=== PATIENT | female | born 1995 | race African-American/Black ===

== ENCOUNTER 2022-06-16 21:59 | Emergency (ER) | payer SELFPAY ==
[2022-06-17] MEDS ORDERED: Acetaminophen 500 MG TAB ONE (00:44)
== END 2022-06-17 01:50 | disposition home or self-care (01) ==
LOC: CSHERS 21:59
DX: M79.674 Pain in right toe(s) (principal); R03.0 Elevated blood-pressure reading, without diagnosis of hypertension

== ENCOUNTER 2022-07-29 21:44 | Emergency (ER) | payer SELFPAY ==
[2022-07-29 22:13] LABS: Bilirubin Neg (Negative); Blood, Urine 10 (Negative); Clarity Cloudy (Clear); Glucose, Urine (Dipstick) Normal (Negative); Ketone, Urine 5 mg/dL (Negative); Leukocyte 500 (Negative); Nitrite Negative (Negative); Protein, Urine (Dipstick) 30 mg/dl (Neg-Trace); pH, Urine 6.5 (5.0-9.0)
[2022-07-29 22:27] LABS: Bacteria/HPF 3+ HPF (None Seen); Mucous/LPF 4+ LPF (<2+); RBC/HPF 0-3 HPF (0-3); WBC/HPF 21-50 HPF (0-3)
[2022-07-29 22:54] LABS: Pregnancy Test - Urine (BHCG) Negative (Negative); Pregu Control Background? CLEAR/WHITE (CLR/WHITE); Pregu Control Bar Appear? YES (CONTROL BAR)
== END 2022-07-29 23:44 | disposition home or self-care (01) ==
LOC: CSHERS 21:44
DX: N30.01 Acute cystitis with hematuria (principal)
CPT/HCPCS: 81003; 81015; 81025; 87086; 99283